=== PATIENT | female | born 2000 | race Caucasian/White ===

== ENCOUNTER 2021-04-14 21:01 | Emergency (ER) | payer BC, SELFPAY ==
[~2021-04-14] VITALS: Ht 162.6 cm; Wt 65.8 kg
[2021-04-14 21:11] VITALS: BP_SYST 115
--- NOTE | 2021-04-14 21:11 | NUR ---
Patient to ER bed 1 to gown for evaluation. Side rails up.
--- NOTE | 2021-04-14 21:15 | NUR ---
PATIENT AAOX4 AND AMBULATORY C/O DOG BITE X1 WEEKS AGO. PER PATIENT SHE DEVELOPED A LUMP ON HER LEFT BUTTOCK. CURRENTLY STATING 6/10 ON THE PAIN SCALE. VSS. WAS SEEN AT URGENT CARE AND RECEIVED ABTX.
--- NOTE | 2021-04-14 21:20 | NUR ---
DR. MORRIS AT BEDSIDE FOR EVALUATION.
--- NOTE | 2021-04-14 21:30 | NUR ---
Blood for labwork drawn from [facility]. Patient tolerated WELL.
[2021-04-14 21:46] LABS: BASOPHILS # (AUTO) 0.1 K/uL (0.0-0.2); BASOPHILS % (AUTO) 0.4 % (0.0-2.0); EOSINOPHILS % (AUTO) 0.3 % (0.0-4.0); HEMATOCRIT 38.6 % (36-48); HEMOGLOBIN 13.4 g/dL (12.0-16.0); LYMPHOCYTES # (AUTO) 2.7 K/uL (1.0-5.5); LYMPHOCYTES % (AUTO) 15.3 % (20.5-51.5); MEAN CORPUSCULAR HEMOGLOBIN 31 pg (27-31); MEAN CORPUSCULAR HGB CONC 35 % (32-36); MEAN CORPUSCULAR VOLUME 89 fL (79.0-98.0); MONOCYTES % (AUTO) 5.7 % (1.7-9.3); NEUTROPHILS # (AUTO) 13.9 K/uL (1.8-7.7); NEUTROPHILS % (AUTO) 78.3 % (40.0-70.0); PLATELET COUNT (AUTO) 334 K/uL (130-430); RED BLOOD CELL COUNT(AUTO) 4.34 MIL/uL (4.2-6.2); RED CELL DISTRIBUTION WIDTH 13.4 % (9.0-15.0); WHITE BLOOD COUNT (AUTO) 17.7 K/uL (4.8-10.8)
[2021-04-14 21:54] LABS: ANION GAP 7 (5-15); CALCIUM 9.4 mg/dL (8.4-11.0); CHLORIDE 103 mmol/L (98-107); CREATININE 0.83 mg/dL (0.55-1.30); GFR AFRICAN AMERICAN 112 mL/min (>90); GLUCOSE 93 mg/dL (70-99); SODIUM SERUM 140 mmol/L (136-145); UREA NITROGEN, BLOOD 9 mg/dL (8-21)
[2021-04-14 22:01] LABS: C-REACTIVE PROTEIN QUANT < 0.2 mg/dL (0-0.5)
[2021-04-14 22:09] LABS: INR 0.9 (0.8-1.2); PROTHROMBIN TIME 9.9 SECS (9.5-12.5)
[2021-04-14 22:16] LABS: ALANINE AMINOTRANSFERASE 29 U/L (12-78); ALBUMIN 4.4 g/dL (3.4-4.8); ASPARTATE AMINOTRANSFERASE 18 U/L (10-37); TOTAL BILIRUBIN 0.6 mg/dL (0.0-1.0)
--- NOTE | 2021-04-14 22:38 | NUR ---
PT BACK FROM US VIA AMBULATORY.
[2021-04-14] MEDS ORDERED: DIPH-TET-PERTUS Vaccine 0.5 ML VIAL (ADACEL) I.M. ONE (22:45)
[2021-04-14] MEDS ORDERED: LIDOCAINE 1% 10 MG/ML, 50 ML MDV INJ ONE (23:15)
[2021-04-14] MEDS ORDERED: LIDOCAINE 1%, 20 ML MDV 60 ML ONE (23:21)
--- NOTE | 2021-04-15 | NUR ---
DR. REDDY REMOVED 10CC OF FREE FLOWING BLOOD FROM LEFT BUTTOCKS. CLEAN AND DRY DRESSING APPLIED TO AREA. PT TOLERATED WELL.
--- NOTE | 2021-04-15 00:46 | NUR ---
# 20 gauge angiocath placed to LEFT AC. Use of asceptic technique. Opsite placed over site. Blood return noted. Blood for lab drawn from site. Flushed with 10 cc of normal saline. No evidence of infiltration noted. Patient tolerated well.
--- NOTE | 2021-04-15 00:49 | NUR ---
COVID SWAB COLLECTED AND SENT TO LAB.
--- NOTE | 2021-04-15 01:50 | NUR ---
PENDING INSURANCE TO ADMIT OR TRANSFER TO ANOTHER HOSPITAL. UPDATE GIVEN TO PATIENT.
--- NOTE | 2021-04-15 03:44 | NUR ---
Patient resting quietly. No acute distress noted. Vital signs within normal range.
--- NOTE | 2021-04-15 04:38 | NUR ---
RECEIVED A CALL FROM MARTY. LOPEZ TO BE TRANSFERED TO [facility]. [address] RECEIVING MD WELDON.
--- NOTE | 2021-04-15 05:13 | NUR ---
Patient to be transferred to [facility]. Is being transferred due to higher level of care. Receiving facility has accepting physician and available space. ER physician has signed transfer form. Patient or responsible alliance party has agreed to transfer and signed form. Patient belongings inventoried and will be sent with patient. Copy of nursing notes, lab reports, EKG, Physicians Orders and X-rays to be sent with patient. Report called to RYDER WILCOX at receiving facility. Receiving physician is . ambulance service has been called for transfer. ETA is PENDING.
--- NOTE | 2021-04-15 06:33 | NUR ---
Patient resting quietly AND AWAITING TRANSPORTATION. No acute distress noted. Vital signs within normal range.
--- NOTE | 2021-04-15 07:11 | NUR ---
REPORT GIVEN TO RYDER CORONADO TO ASSUME CARE OF PATIENT.
--- NOTE | 2021-04-15 07:25 | NUR ---
UPDATE TO MOTHER. AWARE OF TRANSFER TO [facility]
--- NOTE | 2021-04-15 07:35 | NUR ---
JESUS MANUEL TO ASSUME CARE. PT CALM, ALERT, RESTING EASY, NO DISTRESS. SKIN WARM AND DRY DRSG INTACT
--- NOTE | 2021-04-15 08:40 | NUR ---
Patient to be transferred to [place]. Is being transferred due to higher level of care. Receiving facility has accepting physician and available space. ER physician has signed transfer form. Patient or responsible green party has agreed to transfer and signed form. Patient belongings inventoried and will be sent with patient. Copy of nursing notes, lab reports, EKG, Physicians Orders and X-rays to be sent with patient. Report called to jamison at receiving facility. Receiving physician is Sera. ambulance service has been called for transfer. ETA is [f now].
[2021-04-15 08:46] VITALS: BP_SYST 106
== END 2021-04-15 08:46 | disposition short-term general hospital (02) ==
LOC: SED 21:01
DX: L98.8 Other specified disorders of the skin and subcutaneous tissue (principal); Z20.822 Contact with and (suspected) exposure to COVID-19
CPT/HCPCS: 10160; 36415; 76882; 80053; 84703; 85025; 85610; 85730; 86140; 87040; 87426; 90471; 90715; 99285; J2001